=== PATIENT | male | born 1955 | race Caucasian/White ===

== ENCOUNTER 2018-11-21 19:44 | Emergency (ER) | payer BC, OTHER ==
--- NOTE | 2018-11-21 21:07 | UC ---
FLU HPI - HPI Summary HPI Summary: PATIENT WAS TRAVELING IN [place], [place]CIFICALLY [place] [facility]. HE WAS THERE FOR ABOUT 10 DAYS AND RETURNED ON 11/10/18. ABOUT 1 WEEK AFTER HE RETURNED TO [place] (11/17/18) HE DEVELOPED COUGH, CONGESTION, FEVER TMAX 101, SWEATS, CHILLS AND SORE THROAT. FEELS TIRED AND ACHY. HE'S HAD SOME LOOSE STOOLS BUT DENIES ANY VOMITING OR DIARRHEA. UP-TO-DATE FLU SHOT. LAST DOSE IBUPROFEN 12 HOURS AGO. IS TRAVELING TO [facility] IN 10 DAYS AND IS CONCERNED ABOUT THIS ILLNESS. - History of Current Complaint Chief Complaint: UCRespiratory Stated Complaint: FEVER Time Seen by Provider: 11/21/18 20:48 Hx Obtained From: Patient Onset/Duration: Gradual Onset, Lasting Days, Still Present Severity Currently: Moderate Severity Initially: Moderate Pain Intensity: 5 Pain Scale Used: 0-10 Numeric Associated Signs & Symptoms: Positive: Fever, Myalgia, Cough, Sore Throat, Nasal Congestion, Headache - Allergy/Home Medications Allergies/Adverse Reactions: Allergies Allergy/AdvReac Type Severity Reaction Status Date / Time No Known Allergies Allergy Verified 11/21/18 20:02 Home Medications: Home Medications Aspirin 81 mg CHEW TAB* 81 mg PO DAILY 11/21/18 [History Confirmed 11/21/18] Clobetasol Propionate 11/21/18 [History] Clopidogrel TAB* [Plavix TAB*] 75 mg PO DAILY 11/21/18 [History Confirmed ] Ibuprofen TAB* [Advil TAB*] 400 mg PO ONCE PRN 11/21/18 [History Confirmed 11/21] Nitroglycerin TAB 0.4 MG* 0.4 mg SL . NEEDED PRN 11/21/18 [History Confirmed 11/21/18] Secukinumab [Cosentyx Syringe] 300 mg SC PRN 11/21/18 [History] PMH/Surg Hx/FS Hx/Imm Hx - Additional Past Medical History Additional PMH: PSORIASIS Cardiovascular History: Hypertension Other Cancer History: WALDENSTROMS MACROGLOBULINEMIA - Surgical History Surgical History: Yes Surgery Procedure, Year, and Place: hernia repair - Family History Known Family History: Positive: Non-Contributory - Social History Alcohol Use: None Substance Use Type: None Smoking Status (MU): Current Every Day Smoker Type: Cigarettes Amount Used/How Often: 1.5 PPD Review of Systems All Other Systems Reviewed And Are Negative: Yes Constitutional: Positive: Fever, Chills, Fatigue ENT: Positive: Sore Throat, Nasal Discharge Respiratory: Positive: Cough Cardiovascular: Positive: Negative Gastrointestinal: Positive: Nausea Genitourinary: Positive: Negative Musculoskeletal: Positive: Arthralgia, Myalgia Neurological: Positive: Headache Physical Exam Triage Information Reviewed: Yes Appearance: Ill-Appearing - APPEARS FATIGUED, SWEATY Vital Signs: Initial Vital Signs Temp 101.4 F 11/21/18 19:53 Pulse 82 11/21/18 19:53 Resp 16 11/21/18 19:53 BP 142/88 11/21/18 19:53 Pulse Ox 95 11/21/18 19:53 Laboratory Tests 11/21/18 21:12 Influenza A (Rapid) Negative Influenza B (Rapid) Negative Vital Signs Reviewed: Yes Eyes: Positive: Conjunctiva Clear ENT: Positive: Hearing grossly normal, Pharynx normal, TMs normal Neck: Positive: Supple, Nontender, No Lymphadenopathy Respiratory Exam: Normal Cardiovascular Exam: Normal Abdomen Description: Positive: Nontender, Soft. Negative: CVA Tenderness (R), CVA Tenderness (L), Distended, Guarding Musculoskeletal: Positive: No Edema Neurological: Positive: Alert Psychological: Positive: Age Appropriate Behavior Skin: Negative: Rashes Diagnostics - Radiology CXR Radiology Interpretation Completed By: ED Physician Summary of Radiographic Findings: UNREMARKABLE Flu Course/Dx - Course Course Of Treatment: PT WITH 5 DAYS OF PERSISTENT FEVER AND FATIGUE ALONG WITH COUGH, CHEST CONGESTION, SCRATCHY THROAT AND BODY ACHES. WAS RECENTLY IN [place] BUT ACCORDING TO CDC WEBSITE WAS NOT IN AN AREA OF CONCERN FOR MALARIA. FLU SWAB NEGATIVE. CXR UNREMARKABLE ON MY INITIAL INTERPRETATION. OFFICIAL RADIOLOGY READ PENDING. PT IS TRAVELING TO [facility] IN 10 DAYS. GIVEN THIS UPCOMING TRAVEL AND PERSISTENT FEVER WILL TREAT EMPIRICALLY WITH DOXYCYCLINE. F/ U PCP. TO ED IF SX WORSEN. - Differential Dx/Diagnosis Provider Diagnosis: Acute viral syndrome, Fever Discharge - Sign-Out/Discharge Documenting (check all that apply): Patient Departure All imaging exams completed and their final reports reviewed: No - Discharge Plan Condition: Stable Disposition: HOME Prescriptions: Doxycycline Monohydrate 1 cap PO BID #19 cap Patient Education Materials: Viral Syndrome (ED) Referrals: Tiana Naqvi MD [Primary Care Provider] - If Needed Additional Instructions: YOU HAVE A FLU-LIKE ILLNESS WHICH IS LIKELY VIRALLY MEDIATED HOWEVER GIVEN YOUR PERSISTENT FEVER AND UPCOMING TRAVEL IN 10 DAYS WILL COVER FOR BACTERIAL INFECTION WITH DOXYCYCLINE. TAKE FOR THE FULL COURSE. THIS MEDICATION WILL MAKE YOU MORE SENSITIVE TO UV RAYS SO BE SURE TO TAKE APPROPRIATE SUN PRECAUTIONS. FLU SWAB TODAY WAS NEGATIVE. CHEST X-RAY WAS UNREMARKABLE ON MY INITIAL INTERPRETATION. WE WILL CALL YOU TOMORROW IF THE RADIOLOGY READ DIFFERS. REST, HYDRATE, OTC MEDS NEEDED FOR FEVER AND DISCOMFORT. FOLLOW- UP WITH YOUR PCP IF YOU'RE NOT IMPROVING EXPECTED OVER THE NEXT FEW DAYS. GO TO THE ED WITHOUT FAIL IF YOUR SYMPTOMS WORSEN. - Billing Disposition and Condition Condition: STABLE Disposition: Home
[2018-11-21] MEDS ORDERED: DOXYcycline CAP(*) 100 MG PO ONE (21:26)
[2018-11-21 21:54] VITALS: BP 146/72
--- NOTE | 2018-11-22 12:44 | UC ---
- Progress Note Progress Note: RADIOLOGY REPORT REVIEWED. CXR UNREMARKABLE. NO CHANGE IN MGMT. Course/Dx - Diagnoses Provider Diagnoses: Acute viral syndrome, Fever Discharge - Sign-Out/Discharge Documenting (check all that apply): Post-Discharge Follow Up All imaging exams completed and their final reports reviewed: Yes - Discharge Plan Condition: Stable Disposition: HOME Prescriptions: Doxycycline Monohydrate 1 cap PO BID #19 cap Patient Education Materials: Viral Syndrome (ED) Referrals: Tiana Naqvi MD [Primary Care Provider] - If Needed Additional Instructions: YOU HAVE A FLU-LIKE ILLNESS WHICH IS LIKELY VIRALLY MEDIATED HOWEVER GIVEN YOUR PERSISTENT FEVER AND UPCOMING TRAVEL IN 10 DAYS WILL COVER FOR BACTERIAL INFECTION WITH DOXYCYCLINE. TAKE FOR THE FULL COURSE. THIS MEDICATION WILL MAKE YOU MORE SENSITIVE TO UV RAYS SO BE SURE TO TAKE APPROPRIATE SUN PRECAUTIONS. FLU SWAB TODAY WAS NEGATIVE. CHEST X-RAY WAS UNREMARKABLE ON MY INITIAL INTERPRETATION. WE WILL CALL YOU TOMORROW IF THE RADIOLOGY READ DIFFERS. REST, HYDRATE, OTC MEDS NEEDED FOR FEVER AND DISCOMFORT. FOLLOW- UP WITH YOUR PCP IF YOU'RE NOT IMPROVING EXPECTED OVER THE NEXT FEW DAYS. GO TO THE ED WITHOUT FAIL IF YOUR SYMPTOMS WORSEN. - Billing Disposition and Condition Condition: STABLE Disposition: Home
== END 2018-11-21 21:52 | disposition home or self-care (01) ==
LOC: UCEAST 19:44
DX: B34.9 Viral infection, unspecified (principal); R50.9 Fever, unspecified; F17.210 Nicotine dependence, cigarettes, uncomplicated
CPT/HCPCS: 71046; 99202; A9270-GY; G0463

== ENCOUNTER 2019-07-07 11:14 | Emergency (ER) | payer BC ==
[2019-07-07 12:01] VITALS: BP 135/78
--- NOTE | 2019-07-07 12:31 | UC ---
Throat Pain/Nasal Edward HPI - HPI Summary HPI Summary: 63 yo male presents with sore throat and sinus symptoms. He tells me that 5 days ago he develop body aches and a low grade fever. 3 days ago developed sinus pain/pressure/congestion and a sore throat. Sore throat has been getting progressively worse since that time. He is traveling in a few days and is concerned he will be sick for this. Has not been taking anything OTC for his symptoms. Denies fever, chills, cough, SOB, chest pain - History of Current Complaint Chief Complaint: UCGeneralIllness Stated Complaint: SORETHROAT/EAR/FEVER Time Seen by Provider: 07/07/19 12:07 Hx Obtained From: Patient Onset/Duration: Gradual Onset Severity: Mild Pain Intensity: 3 Pain Scale Used: 0-10 Numeric - Allergies/Home Medications Allergies/Adverse Reactions: Allergies Allergy/AdvReac Type Severity Reaction Status Date / Time No Known Allergies Allergy Verified 07/07/19 12:02 Home Medications: Home Medications Furosemide 1 tab PO DAILY 07/07/19 [History Confirmed 07/07/19] Tamsulosin CAP* [Flomax CAP*] 1 tab PO DAILY 07/07/19 [History Confirmed ] PMH/Surg Hx/FS Hx/Imm Hx Endocrine History: Dyslipidemia Cardiovascular History: Hypertension, Myocardial Infarction - Surgical History Surgical History: Yes Surgery Procedure, Year, and Place: hernia repair - Family History Known Family History: Positive: Non-Contributory - Social History Lives: With Family Alcohol Use: None Substance Use Type: None Smoking Status (MU): Former Smoker Type: Cigarettes Amount Used/How Often: 1.5 PPD Review of Systems All Other Systems Reviewed And Are Negative: Yes Constitutional: Positive: Negative Skin: Positive: Negative Eyes: Positive: Negative ENT: Positive: Sore Throat, Nasal Discharge, Sinus Congestion, Sinus Pain/ Tenderness Respiratory: Positive: Negative Cardiovascular: Positive: Negative Gastrointestinal: Positive: Negative Neurological: Positive: Negative Psychological: Positive: Negative Physical Exam - Summary Physical Exam Summary: GENERAL: NAD. WDWN. No pain distress. SKIN: No rashes, sores, lesions, or open wounds. HEENT: Head: AT/NC Eyes: Conjunctiva clear without inflammation or discharge. Ears: Hearing grossly normal. TMs intact, no bulging, erythema, or edema. Nose: Nasal mucosa pink and moist. NTTP maxillary and frontal sinus. Throat: Posterior oropharynx mild erythema. No tonsillar enlargement. No exudates. No hoarse voice or muffled voice. NECK: Supple. Nontender. No lymphadenopathy. CHEST: CTAB. No r/r/w. No accessory muscle use. Breathing comfortably and in no distress. CV: RRR. Without m/r/g. Pulses intact. Cap refill <2seconds NEURO: Alert. PSYCH: Age appropriate behavior. Triage Information Reviewed: Yes Vital Signs: Initial Vital Signs Temp 99.4 F 07/07/19 11:58 Pulse 57 07/07/19 11:58 Resp 16 07/07/19 11:58 BP 135/78 07/07/19 11:58 Pulse Ox 100 07/07/19 11:58 Laboratory Tests 07/07/19 12:16 Group A Strep Rapid Negative Vital Signs Reviewed: Yes Throat Pain/Nasal Course/Dx - Course Course Of Treatment: POC strep negative. Suspect pharyngitis Discussed viral vs bacterial causes with the pt and he prefers to be on anbx at this time given his comorbidities. - Differential Dx/Diagnosis Provider Diagnosis: Pharyngitis Discharge - Sign-Out/Discharge Documenting (check all that apply): Patient Departure All imaging exams completed and their final reports reviewed: No Studies - Discharge Plan Condition: Stable Disposition: HOME Prescriptions: Amoxicillin PO (*) [Amoxicillin 875 MG (*)] 875 mg PO BID #14 tab Patient Education Materials: Pharyngitis (ED) Referrals: Tiana Naqvi MD [Primary Care Provider] - Additional Instructions: If you develop a fever, shortness of breath, chest pain, new or worsening symptoms - please call your PCP or go to the ED immediately. - Billing Disposition and Condition Condition: STABLE Disposition: Home
== END 2019-07-07 12:36 | disposition home or self-care (01) ==
LOC: UCEAST 11:14
DX: J02.9 Acute pharyngitis, unspecified (principal); I10 Essential (primary) hypertension; I25.2 Old myocardial infarction; E78.5 Hyperlipidemia, unspecified; Z87.891 Personal history of nicotine dependence
CPT/HCPCS: 87651; 99212; G0463

== ENCOUNTER 2020-02-15 08:04 | Day surgery (SDC) | payer BC ==
--- NOTE | 2020-02-11 03:16 | HP ---
CC: Dr. Tiana Naqvi * HISTORY AND PHYSICAL: DATE OF PLANNED ADMISSION/SURGERY: 02/15/20 HISTORY OF PRESENT ILLNESS: Mr. Fontenot is a 64-year-old white male who is admitted with a left ureteral calculus for cystoscopy, left ureteroscopy, laser lithotripsy, and left ureteral stent insertion. Please refer to the detailed history and physical in the cardiology note, dated 01/29/20. Mr. Fontenot is a 64-year-old white male who was on Xarelto because of a past history of coronary artery disease and stent placement. He was evaluated about [address] Naqvi because of gross hematuria associated with mild left groin pain. At that time, he had no renal or voiding symptoms. He had a noncontrast CT of the abdomen and pelvis which showed a partially obstructing 8 mm calculus in the left ureter at the level of the sacroiliac joint. I saw the patient at that time for evaluation. He was asymptomatic and was planning travels to [place] and [place], and he wanted to hold off on any treatment until he his return from his trips. Because of past history of a myocardial infarction that occurred about 13 months ago while in [place], [place], the patient was seen in cardiology consultation and clearance by Dr. De La Cruz. I am including the full history and physical from that evaluation where the patient was cleared for the procedure. Past history is otherwise negative. He denies any voiding symptoms. PAST MEDICAL HISTORY: History of coronary artery disease, status post stent placement in December 2018. The Plavix was recently discontinued by Dr. De La Cruz. The patient had non-Hodgkin lymphoma and received chemotherapy 6 years ago. He has done very well without evidence of recurrent disease. He has Waldenstrom macroglobulinemia and is followed by his research study assistant in [place] and is doing very well. MEDICATIONS: He is maintained on the following medications: 1. Nitroglycerin sublingual as needed. 2. Cosentyx injections. 3. Bisoprolol/HCTZ 5.5/6.25 mg daily. 4. Atorvastatin 80 mg daily. 5. Furosemide 20 mg daily. 6. One baby aspirin per day. ALLERGIES: He denies any allergies to medications. FAMILY HISTORY: Negative for prostate carcinoma or renal diseases or calculi. SOCIAL HISTORY: The patient is a former smoker and he stopped 1 year ago. He drinks 6 alcoholic beverages per week. He denies recreational drug use. REVIEW OF SYSTEMS: He denies any mental disease history. PHYSICAL EXAMINATION GENERAL: Moderately overweight, otherwise healthy looking white male. VITAL SIGNS: Blood pressure 150/80, pulse of 68. LUNGS: Clear. HEART: Regular and rhythmic. No murmurs. ABDOMEN: Soft. No masses. No tenderness. No CVA tenderness. EXTERNAL GENITALIA: Normal. EXTREMITIES: Negative. IMPRESSION: 1. 8-mm left ureteral calculus at the level of the sacroiliac joint noted on CT done 6 weeks ago and confirmed on a preoperative KUB. 2. Gross hematuria due to above. 3. Coronary artery disease. 4. History of lymphoma, status post chemotherapy. 5. Waldenstrom macroglobulinemia, status post chemotherapy. PLAN/RECOMMENDATIONS: Plan is for cystoscopy to rule out any bladder lesions causing the hematuria with his past history of smoking. He will then undergo a left ureteroscopy, laser lithotripsy, and left ureteral stent insertion. If significant edema is noted in the ureter and the stone is difficult to reach, the plan will be to place a ureteral stent and then bring him back for the lithotripsy. Some of the potential complications of the procedure including ureteral stricture were discussed. All his questions were answered. [id number]/[facility] #: [id number] EMMA
[~2020-02-15 08:04] MED LIST: Buffered Lidocaine 1% SYRIN* 1 ML/SYRINGE INTRADERM ONE; Famotidine IV* 10 MG/ML 2 ML (20 mg) IV ONE; Lactated Ringers 1000 ML Bag* 1,000 ML IV SCH
[2020-02-15] MEDS ORDERED: cefTRIAXone(*) 2 GM ADDV.VIAL IVPB ONE (08:50)
[2020-02-15] MEDS ORDERED: Iohexol 180 (CONTRAST) 10 ML SDV IV ONE (09:36)
[2020-02-15] MEDS ORDERED: Propofol* 100 ML ONE (09:45)
[2020-02-15] MEDS ORDERED: Lidocaine 2% PF* 10 ML AMP ONE (09:52)
[2020-02-15 09:57] LABS: BUN/Creatinine Ratio 17.8 (8-20); Calcium 9.7 mg/dL (8.6-10.3); EGFR African American 89.7 (>60); EGFR Non-African American 74.1 (>60); Potassium 3.9 mmol/L (3.5-5.0)
[2020-02-15] MEDS ORDERED: Naloxone* 0.4 MG/ML 1 ML VIAL IV PRN (11:16)
[2020-02-15] MEDS ORDERED: Ondansetron INJ* 2 MG/ML VIAL IV PRN (11:16)
[2020-02-15] MEDS ORDERED: HYDROmorphone INJ1* 1 MG/ML SYRINGE IV PRN (11:16)
[2020-02-15] MEDS ORDERED: oxyCODONE/Acetamin 5/325 MG* TAB PO PRN (11:16)
[2020-02-15] MEDS ORDERED: HYDROmorphone INJ1* 1 MG/ML SYRINGE ONE (11:35)
[2020-02-15] MEDS ORDERED: oxyCODONE/Acetamin 5/325 MG* TAB ONE (11:43)
--- NOTE | 2020-02-15 13:05 | OP ---
CC: Dr. Naqvi * DATE OF OPERATION: 02/15/20 - [facility] DATE OF : 53 SURGEON: Timothy Donis MD. ANESTHESIOLOGIST: Dr. Valderrama. ANESTHESIA: Spinal. PRE-OP DIAGNOSIS: Left ureteral calculus (1 cm). POST-OP DIAGNOSIS: Left ureteral calculus (1 cm). OPERATIVE PROCEDURE: 1. Cystoscopy. 2. Left ureteroscopy. 3. Laser lithotripsy of left ureteral calculus (1 cm). 4. Left retrograde pyelography. 5. Left ureteral stent insertion (7-Ukrainian). INDICATION FOR PROCEDURE: Mr. Fontenot is a 64-year-old white male who was worked up by Dr. Naqvi because of gross painless hematuria and was he was noted on CT scan of the abdomen and pelvis to have an 8-10 mm calculus in the distal third of the left ureter at the level of the sacroiliac joint. The patient was totally asymptomatic having no flank pain. Because of the above history and findings and the size of the stone, the patient is brought in for the above procedure. Pathology: at cystoscopy, the penile and bulbar urethrae looks normal. 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 Examination of the bladder showed no suspicious lesions. No calculi or diverticula were noted. Urethral orifices looked normal. Upon left ureteroscopy, there was a 1 cm calculus that was impacted about 6 cm above the level of the orifice. The calculus had the gross appearance of a calcium oxalate stone. There was moderate dilatation of the ureter and the collecting system above the stone. DESCRIPTION OF PROCEDURE: After successful spinal anesthesia, the patient was placed in the lithotomy position and was prepped and draped for a cystoscopy. Cystoscopy was performed. The bladder was carefully inspected, especially with the history of gross hematuria, and no pathology was found. A flexible-tip hybrid guidewire was then introduced into the left orifice and positioned without difficulty into the area of the left renal pelvis. The cystoscope was then removed keeping the guidewire in place. A size 6.5 semi - rigid ureteroscope was then introduced inside the bladder. A flexible-tip basket was introduced through the port of the ureteroscope and its flexible tip was then passed inside the left ureter alongside the guidewire. That allowed the atraumatic introduction of the ureteroscope inside the ureter. The ureter was advanced without difficulty and the calculus was noted as described. A 550 micron laser fiber was then introduced through the other port of the ureteroscope. The basket was deployed proximal to the stone to avoid its proximal migration. The calculus was then broken into multiple fragments using the laser energy. Care was taken not to damage the ureteral wall. The stone fragments were then extracted using the basket. At the completion of the procedure, final inspection of the ureter showed no significant residual stone fragments, intact ureteral wall without any perforation or injury. There was the expected edema of the mucosa from the chronic impaction of the stone. The ureteroscope was then removed keeping the guidewire in place. The cystoscope was introduced over the guidewire. Retrograde pyelography was then performed. A size 7-Ukrainian stent was then placed with the proximal end coiling in the renal pelvis and the distal end coiling inside the bladder. The stone fragments that were dropped inside the bladder were then removed and the larger stone fragments were sent for stone analysis. The patient tolerated the procedure well and left the operating room in good condition. The plan is to leave the stent in place for about 10 days. It will be removed in the office under local anesthesia. [id number]/[facility] #: [id number] EMMA
[2020-02-15 13:39] VITALS: BP 140/78
== END 2020-02-15 13:58 | disposition home or self-care (01) ==
LOC: OR 08:04
PROVIDERS: ATTEND Urology
DX: N13.2 Hydronephrosis with renal and ureteral calculous obstruction (principal); R31.0 Gross hematuria; I25.10 Atherosclerotic heart disease of native coronary artery without angina pectoris; Z85.72 Personal history of non-Hodgkin lymphomas; D89.0 Polyclonal hypergammaglobulinemia; Z95.5 Presence of coronary angioplasty implant and graft; Z79.01 Long term (current) use of anticoagulants; I25.2 Old myocardial infarction; Z87.891 Personal history of nicotine dependence
CPT/HCPCS: 36415; 62323; 76000; 80048; 82365; 88300; A9270-GY; C1876; J0696; J1170; J2001; J2704

== ENCOUNTER 2022-11-17 12:45 | Inpatient (IN) ==
[2022-11-17] MEDS ORDERED: cefTRIAXone 1 gm/50 mL D5W 1 GM/50 ML BAG IV ONE (12:55)
[2022-11-17] MEDS ORDERED: Azithromycin 500 mg/250 ml NS 500 MG/250 ML BAG IVPB ONE (12:55)
[2022-11-17] MEDS ORDERED: Lactated Ringers 1000 ml BAG 1,000 ML IV ONE (12:58)
[2022-11-17 13:33] LABS: Hematocrit 41 % (42-52); Hemoglobin 13.3 g/dL (14.0-18.0); Mean Corpuscular HGB Conc 32 g/dL (31-36); Mean Corpuscular Hemoglobin 29 pg (27-31); Mean Corpuscular Volume 89 fL (80-94); Mean Platelet Volume 7.8 fL (7.4-10.4); Platelet Count 254 10^3/uL (150-450); Red Blood Count 4.63 10^6 /uL (4.18-5.48); Red Cell Distribution Width 15 % (10-15); White Blood Count 18.2 10^3/uL (3.5-10.8)
[2022-11-17 14:03] LABS: Activated Partial Thrombo Time 32.2 seconds (26.0-38.0); INR 1.42 (0.88-1.18)
[2022-11-17 14:24] LABS: Albumin 3.3 g/dL (3.2-5.2); C Reactive Protein 276.61 mg/L (<8.01); Calcium 8.5 mg/dL (8.6-10.3); Globulin 3.4 g/dL (2-4); Potassium 3.2 mmol/L (3.5-5.0); Total Bilirubin 1.1 mg/dL (0.2-1.0); Total Protein 6.7 g/dL (6.4-8.9)
[2022-11-17 14:25] LABS: ABS Lymphocytes 0.7 10^3/ul (1.0-4.8); ABS Monocytes 1.8 10^3/ul (0-0.8); ABS Neutrophils 15.6 10^3/ul (1.5-7.7); Lymphocyte % 3.9 %; Nucleated Red Blood Cells % 0.1
[2022-11-17] MEDS ORDERED: KCL 10 MEQ/50 ML IVPREMIX 10 MEQ/50 ML BAG IV ONE (14:26)
[2022-11-17] MEDS ORDERED: Iodixanol (CONTRAST) 320 MG/ML 100 ML SDV IV ONE (14:28)
[2022-11-17 15:09] LABS: High Sensitivity Troponin 1 Hr 739 pg/mL (<20)
[2022-11-17] MEDS ORDERED: Potassium Chlor 20 meq TAB.ER PO ONE (16:31)
[2022-11-17] MEDS: Enoxaparin 40 MG/0.4 ML SYR SUBCUT SCH (17:05)
[2022-11-17] MEDS: NS 0.9% 1000 ml BAG 1,000 ML IV SCH (17:05)
[2022-11-17 17:18] LABS: Urine Appearance Clear; Urine Bilirubin Negative (Negative); Urine Blood 1+ (Small) (Negative); Urine Color Yellow; Urine Glucose Negative (Negative); Urine Ketones Negative (Negative); Urine Nitrite Negative (Negative); Urine Protein 2+ (100 mg/dL) (Negative); Urine Specific Gravity 1.015 (1.005-1.030)
[2022-11-17 17:35] LABS: Urine Bacteria 1+ (Absent); Urine Red Blood Cell 2+(6-10/hpf) (Absent); Urine Squamous Epithelial Cell Present (Absent); Urine White Blood Cell Trace(0-5/hpf) (Absent)
[2022-11-17 19:30] LABS: Blood Urea Nitrogen 34 mg/dL (6-24); CO2 Carbon Dioxide 23 mmol/L (22-32); Calcium 7.9 mg/dL (8.6-10.3); Chloride 105 mmol/L (101-111); Glucose 157 mg/dL (70-100); Sodium 138 mmol/L (135-145); eGFR CKD-EPI 79.1 (>60)
[2022-11-17 19:35] LABS: Anion Gap 10 mmol/L (2-11)
[2022-11-17] MEDS ORDERED: Metformin ER 750 mg TAB (NF) PO SCH (21:00)
[2022-11-18 07:17] LABS: Hematocrit 32 % (42-52); Hemoglobin 10.6 g/dL (14.0-18.0); Mean Corpuscular HGB Conc 34 g/dL (31-36); Mean Corpuscular Hemoglobin 30 pg (27-31); Mean Corpuscular Volume 88 fL (80-94); Mean Platelet Volume 7.8 fL (7.4-10.4); Platelet Count 273 10^3/uL (150-450); Red Blood Count 3.58 10^6 /uL (4.18-5.48); Red Cell Distribution Width 15 % (10-15); White Blood Count 21.9 10^3/uL (3.5-10.8)
[2022-11-18 07:39] LABS: Albumin 2.8 g/dL (3.2-5.2); Albumin/Globulin Ratio 0.9 (1-3); C Reactive Protein 259.65 mg/L (<8.01); Calcium 8.2 mg/dL (8.6-10.3); Potassium 3.6 mmol/L (3.5-5.0); Total Bilirubin 1.1 mg/dL (0.2-1.0); Total Protein 5.8 g/dL (6.4-8.9); eGFR CKD-EPI 96.8 (>60)
[2022-11-18 07:56] LABS: ABS Basophils 0.1 10^3/ul (0-0.2); ABS Lymphocytes 0.9 10^3/ul (1.0-4.8); ABS Monocytes 2.1 10^3/ul (0-0.8); ABS Neutrophils 18.8 10^3/ul (1.5-7.7); Lymphocyte % 3.9 %
[2022-11-18] MEDS ORDERED: BISOPROLOL HYDROCHLOROTHIAZIDE PO SCH (09:00)
[2022-11-18 09:12] LABS: High Sensitivity Troponin 1 Hr 290 pg/mL (<20)
[2022-11-18] MEDS ORDERED: NS 0.9% 1000 ml BAG 1,000 ML IV SCH (09:15)
[2022-11-18] MEDS ORDERED: Phytonadione IV (Adult) 5 MG in NS 0.9% 50 ML 50 ML IV ONE (09:55)
[2022-11-18] MEDS ORDERED: Polyethylene Glycol 3350 17 GM PACKET PO PRN (09:57)
[2022-11-18] MEDS: NS 0.9% 1000 ml BAG 1,000 ML IV SCH (12:51)
[2022-11-18] MEDS: guaiFENesin/CODIENE 100mg/10mg 5 ML UDC PO PRN ×2 (12:54→19:58)
[2022-11-18] MEDS: Benzocaine/Menthol LOZ PO PRN (15:21)
[2022-11-18] MEDS: cefTRIAXone 1 gm/50 mL D5W 1 GM/50 ML BAG IV SCH (17:52)
[2022-11-18] MEDS: Enoxaparin 40 MG/0.4 ML SYR SUBCUT SCH (17:54)
[2022-11-18] MEDS: Azithromycin 500 mg/250 ml NS 500 MG/250 ML BAG IVPB SCH (18:21)
[2022-11-19] MEDS: NS 0.9% 1000 ml BAG 1,000 ML IV SCH (02:07)
[2022-11-19 07:15] LABS: ABS Basophils 0.1 10^3/ul (0-0.2); ABS Monocytes 1.5 10^3/ul (0-0.8); ABS Neutrophils 13.3 10^3/ul (1.5-7.7); Eosinophil % 0.3 %; Hematocrit 35 % (42-52); Hemoglobin 11.7 g/dL (14.0-18.0); Mean Corpuscular HGB Conc 34 g/dL (31-36); Mean Corpuscular Hemoglobin 30 pg (27-31); Mean Corpuscular Volume 88 fL (80-94); Mean Platelet Volume 7.7 fL (7.4-10.4); Platelet Count 236 10^3/uL (150-450); Red Blood Count 3.94 10^6 /uL (4.18-5.48); Red Cell Distribution Width 15 % (10-15); White Blood Count 15.9 10^3/uL (3.5-10.8)
[2022-11-19 08:02] LABS: Albumin 2.7 g/dL (3.2-5.2); Calcium 8.2 mg/dL (8.6-10.3); Globulin 2.8 g/dL (2-4); Potassium 3.7 mmol/L (3.5-5.0); Total Bilirubin 0.8 mg/dL (0.2-1.0); Total Protein 5.5 g/dL (6.4-8.9); eGFR CKD-EPI 96.4 (>60)
[2022-11-19] MEDS: BISOPROLOL PO SCH (09:23)
[2022-11-19] MEDS: Benzocaine/Menthol LOZ PO PRN (09:23)
[2022-11-19] MEDS: HYDROCHLOROTHIAZIDE PO SCH (09:23)
[2022-11-19] MEDS: guaiFENesin/CODIENE 100mg/10mg 5 ML UDC PO PRN ×2 (12:07→20:31)
[2022-11-19 14:37] LABS: C Reactive Protein 226.93 mg/L (<8.01)
[2022-11-19] MEDS: Enoxaparin 40 MG/0.4 ML SYR SUBCUT SCH (17:53)
[2022-11-19] MEDS: cefTRIAXone 1 gm/50 mL D5W 1 GM/50 ML BAG IV SCH (18:01)
[2022-11-19] MEDS: Azithromycin 500 mg/250 ml NS 500 MG/250 ML BAG IVPB SCH (18:03)
[2022-11-20 06:46] LABS: ABS Basophils 0.2 10^3/ul (0-0.2); ABS Eosinophils 0.1 10^3/ul (0-0.6); ABS Lymphocytes 0.9 10^3/ul (1.0-4.8); ABS Monocytes 1.2 10^3/ul (0-0.8); ABS Neutrophils 12.2 10^3/ul (1.5-7.7); Eosinophil % 0.7 %; Hematocrit 34 % (42-52); Mean Corpuscular HGB Conc 33 g/dL (31-36); Mean Corpuscular Hemoglobin 29 pg (27-31); Mean Corpuscular Volume 89 fL (80-94); Mean Platelet Volume 7.6 fL (7.4-10.4); Platelet Count 224 10^3/uL (150-450); Red Cell Distribution Width 15 % (10-15); White Blood Count 14.4 10^3/uL (3.5-10.8)
[2022-11-20 07:33] LABS: Albumin 2.6 g/dL (3.2-5.2); Calcium 8.4 mg/dL (8.6-10.3); Globulin 2.7 g/dL (2-4); Potassium 3.9 mmol/L (3.5-5.0); Total Bilirubin 0.8 mg/dL (0.2-1.0); Total Protein 5.3 g/dL (6.4-8.9); eGFR CKD-EPI 98.7 (>60)
[2022-11-20] MEDS: guaiFENesin/CODIENE 100mg/10mg 5 ML UDC PO PRN (09:28)
[2022-11-20] MEDS: HYDROCHLOROTHIAZIDE PO SCH (09:28)
[2022-11-20] MEDS: Benzocaine/Menthol LOZ PO PRN (09:28)
[2022-11-20] MEDS: BISOPROLOL PO SCH (09:28)
[2022-11-20 10:41] LABS: Immunoglobulin G 635 mg/dL (767 - 1590)
[2022-11-20 11:39] LABS: Immunoglobulin M 1200 mg/dL (37 - 286)
[2022-11-20 15:03] LABS: Aspergillus (Galactomannan) Ag <0.500 index (<0.5)
[2022-11-20 15:07] LABS: Fungitell Qualitative Result Negative (Negative); Fungitell Quantitative Value 33 pg/mL (<60 pg/mL)
[2022-11-20] MEDS: cefTRIAXone 1 gm/50 mL D5W 1 GM/50 ML BAG IV SCH (16:51)
[2022-11-20] MEDS: Enoxaparin 40 MG/0.4 ML SYR SUBCUT SCH (16:51)
[2022-11-21 07:26] LABS: ABS Basophils 0.1 10^3/ul (0-0.2); ABS Eosinophils 0.1 10^3/ul (0-0.6); ABS Lymphocytes 0.8 10^3/ul (1.0-4.8); ABS Monocytes 1.2 10^3/ul (0-0.8); ABS Neutrophils 10.6 10^3/ul (1.5-7.7); Eosinophil % 0.9 %; Hematocrit 34 % (42-52); Hemoglobin 11.5 g/dL (14.0-18.0); Lymphocyte % 6.3 %; Mean Corpuscular HGB Conc 34 g/dL (31-36); Mean Corpuscular Hemoglobin 30 pg (27-31); Mean Corpuscular Volume 88 fL (80-94); Mean Platelet Volume 7.8 fL (7.4-10.4); Platelet Count 248 10^3/uL (150-450); Red Blood Count 3.84 10^6 /uL (4.18-5.48); Red Cell Distribution Width 15 % (10-15); White Blood Count 12.9 10^3/uL (3.5-10.8)
[2022-11-21 08:06] LABS: Albumin 2.5 g/dL (3.2-5.2); Albumin/Globulin Ratio 0.9 (1-3); Calcium 8.3 mg/dL (8.6-10.3); Globulin 2.7 g/dL (2-4); Potassium 3.7 mmol/L (3.5-5.0); Total Bilirubin 0.9 mg/dL (0.2-1.0); Total Protein 5.2 g/dL (6.4-8.9); eGFR CKD-EPI 103.6 (>60)
[2022-11-21] MEDS: HYDROCHLOROTHIAZIDE PO SCH (08:41)
[2022-11-21] MEDS: BISOPROLOL PO SCH (08:41)
[2022-11-21 11:42] LABS: Albumin 2.1 g/dL (3.4-4.7); Albumin/Globulin Ratio 0.56; Gamma Globulin 1.4 g/dL (0.6-1.6); Total Protein(PEP) 5.9 g/dL (6.3 - 7.9)
[2022-11-21 14:22] VITALS: BP 126/60
[2022-11-21 17:43] LABS: Adenovirus Undetected (Undetected); Bordetella parapertussis Undetected (Undetected); Bordetella pertussis Undetected (Undetected); Chlamydophila pneumoniae Undetected (Undetected); Coronavirus 229E Undetected (Undetected); Coronavirus HKU1 Undetected (Undetected); Coronavirus NL63 Undetected (Undetected); Coronavirus OC43 Undetected (Undetected); Human Metapneumovirus Undetected (Undetected); Human Rhinovirus/Enterovirus Undetected (Undetected); Influenza A Undetected (Undetected); Influenza B Undetected (Undetected); Mycoplasmoides pneumoniae Undetected (Undetected); Parainfluenza Virus 1 Undetected (Undetected); Parainfluenza Virus 2 Undetected (Undetected); Parainfluenza Virus 3 Undetected (Undetected); Parainfluenza Virus 4 Undetected (Undetected); Respiratory Syncytial Virus Undetected (Undetected); Specimen Source NASOPHARYNGEAL SWAB
== END 2022-11-21 14:53 | disposition home or self-care (01) | DRG 193 ==
LOC: ED 12:45 → EDHOLD 16:10 → SUATTDRO 16:10 → MEDTELE 11-18 10:27
PROVIDERS: ADMIT Internal Medicine Hematology & Oncology; ATTEND Internal Medicine